=== PATIENT | female | born 1995 | race African-American/Black ===

== ENCOUNTER 2018-10-10 22:33 | Emergency (ER) | payer MEDICAID ==
[~2018-10-10] VITALS: Ht 162.6 cm; Wt 68.0 kg
[2018-10-10 22:45] VITALS: BP 120/71
--- NOTE | 2018-10-10 22:45 | NUR ---
23 Y/O F RT FACIAL PAIN AND SWELLING FOR 3 DAYS. SKIN IS INTACT, PINK/WARM/DRY; AAOX4, PERRL, WITH EVEN AND STEADY GAIT; LUNGS CLEAR BL, BREATHING UNLABORED; HR EVEN AND REGULAR, BL PERIPHERAL PULSES PRESENT; BS ACTIVE X4. PT DENIES ANY FEVER, CP, SOB, OR COUGH AT THIS TIME; PT STATES 7/10 PAIN AT THIS TIME; VSS; PATIENT POSITIONED FOR COMFORT; HOB ELEVATED; BEDRAILS UP X2; BED DOWN.
--- NOTE | 2018-10-10 22:45 | NUR ---
TO BED # 4 AMBULATORY, REPORT GIVEN TO JOANNE ROSS
--- NOTE | 2018-10-10 23:20 | NUR ---
Dr. Rausch evaluating patient at bedside.
[2018-10-10] MEDS ORDERED: KETOROLAC 30 MG/ML VIAL IM ONE (23:25)
[2018-10-10 23:44] VITALS: BP 122/72
--- NOTE | 2018-10-10 23:45 | NUR ---
Patient discharged with v/s stable. Written and verbal after care instructions given and explained. Patient alert, oriented and verbalized understanding of instructions. Ambulatory with steady gait. All questions addressed prior to discharge. ID band removed. Patient advised to follow up with PMD. Rx of AMOXICILLIN, NAPROSYN, TYLENOL WITH CODEINE given. Patient educated on indication of medication including possible reaction and side effects. Opportunity to ask questions provided and answered.
== END 2018-10-10 23:45 | disposition home or self-care (01) ==
LOC: MED 22:33
DX: R59.1 Generalized enlarged lymph nodes (principal)
CPT/HCPCS: 99283; J1885

== ENCOUNTER 2019-07-11 11:24 | Emergency (ER) | payer BC, MEDICAID ==
[~2019-07-11] VITALS: Ht 162.6 cm; Wt 68.0 kg
[2019-07-11 11:30] VITALS: BP 126/97
--- NOTE | 2019-07-11 11:30 | NUR ---
PT TAKEN TO BED 7.
--- NOTE | 2019-07-11 12:02 | NUR ---
PT BIB SELF WITH C/O RT HAND PAIN AT THE LATERAL SIDE OF HER PALM. STATES HIT THE DOOR AT HOME YESTERDAY, PAIN 9/10 AT THIS TIME. SLIGHT SWELLING NOTICED, CMS PRESENT AT THE FINGERS. STATES UNABLE TO PERFORM DAILY ACTIVITIES WITH HER RT HAND. NO PAST MEDICAL HX. NO KNOWN ALLERGIES. TOOK MOTRIN AT HOME, NO RELIEF AT HOME. ER MD ASSESSING PT AT THE BEDSIDE. WILL CONTINUE TO MONITOR PT.
--- NOTE | 2019-07-11 12:10 | NUR ---
X-Ray at bedside.
[2019-07-11] MEDS ORDERED: KETOROLAC 30 MG/ML VIAL IM ONE (13:25)
--- NOTE | 2019-07-11 14:21 | NUR ---
EMT AT THE BEDSIDE. PLACING SLING ON HER RT SIDE. PT DISCHARGED HOME WITH MEDS AND DISCHARGE INSTRUCTION.
[2019-07-11 14:22] VITALS: BP 143/92
--- NOTE | 2019-07-11 14:22 | NUR ---
Patient discharged with v/s stable. Written and verbal after care instructions given and explained. Patient alert, oriented and verbalized understanding of instructions. Ambulatory with steady gait. All questions addressed prior to discharge. ID band removed. Patient advised to follow up with PMD. Rx of MOTRIN 400 MG AND ACETAMINOPHEN 500 MG given. Patient educated on indication of medication including possible reaction and side effects. Opportunity to ask questions provided and answered.
== END 2019-07-11 14:22 | disposition home or self-care (01) ==
LOC: MED 11:24
DX: S60.221A Contusion of right hand, initial encounter (principal); W22.8XXA Striking against or struck by other objects, initial encounter; Y93.89 Activity, other specified; Y92.89 Other specified places as the place of occurrence of the external cause; Y99.8 Other external cause status
CPT/HCPCS: 73130; 81002; 81025; 96372; 99283; J1885; Q0092

== ENCOUNTER 2020-01-01 20:05 | Emergency (ER) | payer BC ==
[~2020-01-01] VITALS: Ht 162.6 cm; Wt 76.2 kg
[2020-01-01 20:21] VITALS: BP 157/95
[2020-01-01] MEDS ORDERED: KETOROLAC 30 MG/ML VIAL IM ONE (21:05)
[2020-01-01] MEDS ORDERED: IBUPROFEN 600 MG TAB PO ONE (21:15)
[2020-01-01 21:55] LABS: APPEARANCE,URINE CLEAR (CLEAR); BILIRUBIN,URINE NEGATIVE (NEGATIVE); BLOOD, URINE NEGATIVE (NEGATIVE); COLOR,URINE YELLOW (YELLOW); LEUKOCYTE ESTERASE ,URINE NEGATIVE (NEGATIVE); NITRITE, URINE NEGATIVE (NEGATIVE); PH,URINE 6.5 (5.0-9.0); UGLUCOSE NEGATIVE (NEGATIVE)
[2020-01-01 22:21] VITALS: BP 157/95
== END 2020-01-01 22:21 | disposition home or self-care (01) ==
LOC: MED 20:05
DX: R10.2 Pelvic and perineal pain (principal); J45.909 Unspecified asthma, uncomplicated; Z91.013 Allergy to seafood
CPT/HCPCS: 76856; 81003; 81025; 99284; Q0092; J1885

== ENCOUNTER 2020-04-06 16:09 | Emergency (ER) | payer BC, SELFPAY ==
[~2020-04-06] VITALS: Ht 162.6 cm; Wt 74.8 kg
[2020-04-06 16:52] VITALS: BP 131/96
--- NOTE | 2020-04-06 17:00 | NUR ---
COUGH, LOSS OF SMELL/TASTE, BODY ACHE X 3 DAYS
--- NOTE | 2020-04-06 17:40 | NUR ---
COVID SWAB DONE.
--- NOTE | 2020-04-06 18:40 | NUR ---
Patient discharged with v/s stable. Written and verbal after care instructions given and explained. Patient alert, oriented and verbalized understanding of instructions. Ambulatory with steady gait. All questions addressed prior to discharge. ID band removed. Patient advised to follow up with PMD. Rx of IBUPROFEN & PROMETHAZINE given. Patient educated on indication of medication including possible reaction and side effects. Opportunity to ask questions provided and answered.
[2020-04-06 18:41] VITALS: BP 131/96
--- NOTE | 2020-04-08 12:06 | NUR ---
Positive covid report received from Lab. Will send copy of report to supervisor [employer] and contact pt.
== END 2020-04-06 18:40 | disposition home or self-care (01) ==
LOC: EEVIPCON 16:09 → MED 16:09
DX: B34.9 Viral infection, unspecified (principal); Z20.828 Contact with and (suspected) exposure to other viral communicable diseases; R03.0 Elevated blood-pressure reading, without diagnosis of hypertension; F17.210 Nicotine dependence, cigarettes, uncomplicated; Z91.013 Allergy to seafood
CPT/HCPCS: 99283; U0003

== ENCOUNTER 2020-04-15 14:31 | Emergency (ER) | payer BC, SELFPAY ==
[~2020-04-15] VITALS: Ht 162.6 cm; Wt 72.6 kg
[2020-04-15 14:51] VITALS: BP 122/98
[2020-04-15 15:38] VITALS: BP 120/80
== END 2020-04-15 15:37 | disposition home or self-care (01) ==
LOC: MED 14:31 → EEVIPCON 14:31 → MED 15:37
DX: R43.8 Other disturbances of smell and taste (principal); Z91.013 Allergy to seafood; Z20.828 Contact with and (suspected) exposure to other viral communicable diseases
CPT/HCPCS: 99283; U0003

== ENCOUNTER 2020-07-08 18:52 | Emergency (ER) | payer BC, SELFPAY ==
[~2020-07-08] VITALS: Ht 162.6 cm; Wt 74.8 kg
[2020-07-08 18:59] VITALS: BP 129/90
--- NOTE | 2020-07-08 19:04 | NUR ---
PT TAKEN TO BED 3.
[2020-07-08] MEDS ORDERED: NACL 0.9% 500 ML IV ONE (19:25)
[2020-07-08] MEDS ORDERED: KETOROLAC 30 MG/ML VIAL IVP ONE (19:25)
[2020-07-08] MEDS ORDERED: methylPREDNISolone SS 125 MG/2 ML VIAL IVP ONE (19:25)
--- NOTE | 2020-07-08 19:37 | NUR ---
FLU AND STREP COLLECTED AND GAVE TO LAB.
[2020-07-08] MEDS ORDERED: cefTRIAXone 1,000 MG VIAL ONE (19:39)
--- NOTE | 2020-07-08 20:20 | NUR ---
25 Y/O F PRESENTS TO ED C/O SORE THROAT X 3 DAYS. PT STATES THAT SHE SPOKE TO HER PCP AND WAS PRESCRIBED AN ANTIBIOTIC AND IBUPROFEN. PER PT, TAKING ANTIBIOTIC AND IBUPROFEN PRESCRIBED WITHOUT RELIEF. THROAT SWOLLEN AND PATCHY. PT STATES HAVE DIFFICULTY SWALLOWING AND HAS NO APPETITE. DENIES COUGH, FEVER. VSS. AIRWAY INTACT. RR EVEN AND UNLABORED. LUNG SOUNDS CLEAR. BED LOCKED AND IN LOWEST POSITION, SIDE RAIL UP X1. WILL CONTINUE TO MONITOR. MHX: DENIES ALLERGIES: SEAFOOD
[2020-07-08 21:20] VITALS: BP 129/90
--- NOTE | 2020-07-08 21:20 | NUR ---
Patient discharged with v/s stable. Written and verbal after care instructions given and explained. Patient alert, oriented and verbalized understanding of instructions. Ambulatory with steady gait. All questions addressed prior to discharge. ID band removed. Patient advised to follow up with PMD. Rx of AUGMENTIN, TRAMADOL, MOTRIN given. Patient educated on indication of medication including possible reaction and side effects. Opportunity to ask questions provided and answered.
== END 2020-07-08 21:20 | disposition home or self-care (01) ==
LOC: MED 18:52
DX: J02.8 Acute pharyngitis due to other specified organisms (principal); Z91.013 Allergy to seafood
CPT/HCPCS: 87081; 87804; 96365; 96375; 99284; J0696; J1885; J2930; J7030

== ENCOUNTER 2021-02-11 12:30 | Emergency (ER) | payer BC, SELFPAY ==
[~2021-02-11] VITALS: Ht 162.6 cm; Wt 74.8 kg
[2021-02-11 12:32] VITALS: BP 126/68
--- NOTE | 2021-02-11 12:57 | NUR ---
25 YO F BIB SELF FOR C/C OF N/V, AQUINO, AND MID LOWER ABDOMINAL CRAMPING X2 DAYS. PT DENIES ANY PAIN AT THIS TIME. DENIES OTC MEDS. LBM WAS THIS MORNING SOFT AND FORMED, PT REPORTS HAVING BOWEL MOVEMENTS MORE THEN NORMAL. BOWEL SOUNDS NORMOACTIVE THROUGHOUT. PT PROVIDED WITH WATER TO ENCOURAGE VOID FOR ORDERED UA. BED LOCKED AND IN LOWEST POSITION. SIDE RAILS X1. MED HX: DENIES
[2021-02-11] MEDS ORDERED: ONDANSETRON 4 MG ODT PO ONE (13:00)
--- NOTE | 2021-02-11 13:09 | NUR ---
stephania and flu swab collected and given to CPT Johanne at bedside.
[2021-02-11 13:36] LABS: BASOPHILS % (AUTO) 0.4 % (0.0-2.0); EOSINOPHILS % (AUTO) 0.9 % (0.0-4.0); HEMOGLOBIN 12.8 g/dL (12.0-16.0); LYMPHOCYTES # (AUTO) 0.7 K/uL (2.5-16.5); LYMPHOCYTES % (AUTO) 21.3 % (20.5-51.1); MEAN CORPUSCULAR HEMOGLOBIN 31 pg (27-31); MEAN CORPUSCULAR HGB CONC 34 g/dL (33-37); MEAN CORPUSCULAR VOLUME 91.2 fL (80-94); MONOCYTES # (AUTO) 0.5 K/uL (0.8-1.0); NEUTROPHILS # (AUTO) 2.1 K/uL (1.8-7.7); NEUTROPHILS % (AUTO) 62.4 % (42.2-75.2); PLATELET COUNT (AUTO) 235 K/uL (140-450); RED BLOOD CELL COUNT(AUTO) 4.17 MIL/uL (4.20-5.40); RED CELL DISTRIBUTION WIDTH 12.6 % (11.6-13.7); WHITE BLOOD COUNT (AUTO) 3.4 K/uL (4.8-10.8)
--- NOTE | 2021-02-11 13:46 | NUR ---
US AT BEDSIDE
[2021-02-11] MEDS ORDERED: ONDA4ODT2 PO (14:12)
[2021-02-11] MEDS ORDERED: CEPH500C16 PO (14:12)
[2021-02-11] MEDS ORDERED: PREN-371 PO (14:12)
[2021-02-11 14:28] VITALS: BP 126/68
--- NOTE | 2021-02-11 14:28 | NUR ---
Patient discharged with v/s stable. Written and verbal after care instructions given and explained. Patient alert, oriented and verbalized understanding of instructions. Ambulatory with steady gait. All questions addressed prior to discharge. ID band removed. Patient advised to follow up with PMD. Rx of VITAMINS, ZOFRAN, KEFLEX given. Patient educated on indication of medication including possible reaction and side effects. Opportunity to ask questions provided and answered.
== END 2021-02-11 14:28 | disposition home or self-care (01) ==
LOC: MED 12:30
DX: O23.41 Unspecified infection of urinary tract in pregnancy, first trimester (principal); O21.9 Vomiting of pregnancy, unspecified; Z3A.01 Less than 8 weeks gestation of pregnancy; Z91.013 Allergy to seafood
CPT/HCPCS: 36415; 76817; 81002; 81025; 84702; 85025; 86886; 86900; 86901; 87426; 87804; 99284; Q0162

== ENCOUNTER 2021-07-26 07:44 | Emergency (ER) | payer BC, SELFPAY ==
[~2021-07-26] VITALS: Ht 162.6 cm; Wt 77.1 kg
[~2021-07-26 07:44] MED LIST: CEPH500C16 PO; ONDA4ODT2 PO; PREN-371 PO
[2021-07-26 08:03] VITALS: BP 130/87
--- NOTE | 2021-07-26 08:42 | NUR ---
Patient being evaluated by DR LICONA at [facility] .
[2021-07-26] MEDS ORDERED: NAPR-54 PO (09:03)
--- NOTE | 2021-07-26 09:21 | NUR ---
GENARO MARROQUIN WALKED TO LAB.
[2021-07-26 09:25] VITALS: BP 130/87
== END 2021-07-26 09:25 | disposition home or self-care (01) ==
LOC: MED 07:44
DX: J06.9 Acute upper respiratory infection, unspecified (principal); Z20.822 Contact with and (suspected) exposure to COVID-19; J45.909 Unspecified asthma, uncomplicated; Z79.1 Long term (current) use of non-steroidal anti-inflammatories (NSAID); Z79.2 Long term (current) use of antibiotics; Z79.899 Other long term (current) drug therapy; Z91.013 Allergy to seafood
CPT/HCPCS: 99283; U0003

== ENCOUNTER 2024-01-05 07:44 | Emergency (ER) | payer BC ==
[~2024-01-05] VITALS: Ht 162.6 cm; Wt 77.1 kg
[~2024-01-05 07:44] MED LIST changes: +NAPR-54 PO
[2024-01-05 08:09] VITALS: PULSE 110; RESP 20; TEMP 100.6; O2SAT 96
[2024-01-05] MEDS ORDERED: PRED20TA5 PO (08:45)
[2024-01-05] MEDS ORDERED: IBUP-2213 PO (08:45)
[2024-01-05 08:52] LABS: FLU A ANTIGEN negative (NEGATIVE); FLU B ANTIGEN NEGATIVE (NEGATIVE)
[2024-01-05 09:10] VITALS: BP 129/84; PULSE 110; RESP 20; TEMP 100.6; O2SAT 96
[2024-01-05] MEDS: KETOROLAC 60 MG/2 ML VIAL IM ONE (09:11)
[2024-01-05] MEDS: IBUPROFEN 600 MG TAB PO ONE (09:11)
== END 2024-01-05 09:10 | disposition home or self-care (01) ==
LOC: MED 07:44
DX: J06.9 Acute upper respiratory infection, unspecified (principal); J45.909 Unspecified asthma, uncomplicated; J02.9 Acute pharyngitis, unspecified; Z20.822 Contact with and (suspected) exposure to COVID-19; Z91.013 Allergy to seafood; Z79.899 Other long term (current) drug therapy
CPT/HCPCS: 87426; 87804; 99283; J1885; 96372

== ENCOUNTER 2024-07-28 08:39 | Emergency (ER) | payer BC ==
[~2024-07-28] VITALS: Ht 162.6 cm; Wt 79.8 kg
[~2024-07-28 08:39] MED LIST changes: +IBUP-2213 PO; +NAPR-337 PO; -NAPR-54 PO; +ONDA-189 PO; -ONDA4ODT2 PO; +PRED20TA5 PO
[2024-07-28 08:50] VITALS: BP 142/94; PULSE 90; RESP 15; TEMP 98; O2SAT 100
[2024-07-28 09:38] VITALS: BP 142/94; PULSE 90; RESP 15; TEMP 98; O2SAT 100
== END 2024-07-28 09:38 | disposition home or self-care (01) ==
LOC: MED 08:39
DX: L29.9 Pruritus, unspecified (principal); J45.909 Unspecified asthma, uncomplicated; Z79.899 Other long term (current) drug therapy; Z91.013 Allergy to seafood
CPT/HCPCS: 99283